=== PATIENT | male | born 1995 | race Caucasian/White ===

== ENCOUNTER 2017-06-11 09:53 | Emergency (ER) | payer MEDICAID, OTHER ==
[~2017-06-11] VITALS: Ht 170.2 cm; Wt 70.0 kg
[2017-06-11 09:56] VITALS: Ht 170.2 cm; Wt 70.0 kg
[2017-06-11] MEDS ORDERED: IBUP-1542 PO (10:18)
[2017-06-11] MEDS ORDERED: BENZ1LOZ52 MM (10:18)
[2017-06-11] MEDS ORDERED: BENZ100C70 PO (10:18)
--- NOTE | 2017-06-11 10:20 | ERD ---
ER Documentation Chief Complaint Date/Time DATE: 06/11/17 TIME: 10:19 Chief Complaint pt bib self with c/o sore throat for 4 days and slight fever HPI 22-year-old male otherwise healthy presents with sore throat, cough, runny nose for approximately 4 days. He also reports low-grade fever and has been taking cough medication, and also had taken penicillin that was given to him by his grandmother but not improving. He reports that he has had mild headache as well. He has not had any trouble swallowing, voice changes, drooling. Denies vomiting or diarrhea. ROS All systems reviewed and are negative except as per history of present illness. Medications Home Meds Active Scripts Ibuprofen* (Motrin*) 600 Mg Tab, 600 MG PO Q6, #30 TAB Prov:BEN BHATIA PA-C 06/11/17 Benzonatate* (Tessalon Perle*) 100 Mg Capsule, 100 MG PO Q8H Y for COUGH, #30 CAP Prov:BEN BHATIA PA-C 06/11/17 Benzocaine/Menthol* (Cepacol* Sore Throat Lozenges) 1 Each Lozenge, 1 EACH MM q2h Y for SORE THROAT, #30 LOZENGE Prov:BEN BHATIA PA-C 06/11/17 Allergies Allergies: Coded Allergies: No Known Allergy (Unverified , 06/11/17) Physical Exam Vitals Vital Signs Date Time Temp Pulse Resp B/P Pulse Ox O2 Delivery O2 Flow Rate FiO2 06/11/17 09:56 99.5 64 18 144/89 98 Physical Exam General: Well-developed, well-nourished. The patient appears in no acute distress. HEENT: Head is normocephalic, atraumatic. No scleral icterus. Pupils are equal , round, and reactive. Oral mucous membranes are moist. No pharyngeal erythema. Neck: Supple. Nontender. Lungs: Clear to auscultation. Normal air movement. Heart: Regular rate and rhythm. S1 and S2 are normal. No murmurs, gallops, or rubs. Abdomen: Soft, nontender, nondistended. Bowel sounds are normoactive. Extremities: No clubbing or cyanosis. Normal pulses. Moving extremities x 4. No weakness. Neurologic: Alert and oriented 3. No focal deficits. Skin: Normal turgor. No rash or lesions. Procedures/MDM The patient is a 22-year-old male who comes in with an acute upper respiratory infection, presumed viral. The patient has a differential diagnosis of a viral upper respiratory infection, bacterial upper respiratory infection, bronchitis, pneumonia, pharyngitis, laryngitis, epiglottitis, croup, pneumonia. Patient has a normal pulmonary examination, clear breath sounds, normal pulse oximetry, with no corrective measures needed at this time. Fluids, rest, antipyretics were encouraged. Departure Diagnosis: Primary Impression: Viral syndrome Condition: Good Patient Instructions: Viral Syndrome (Adult) BEN BHATIA PA-C Jun 11, 2017 10:19
== END 2017-06-11 11:03 | disposition home or self-care (01) ==
LOC: FTE 09:53
DX: B34.9 Viral infection, unspecified (principal)
CPT/HCPCS: 99283

== ENCOUNTER 2018-08-28 22:55 | Emergency (ER) | END 2018-08-29 03:18 | disposition home or self-care (01) ==